=== PATIENT | female | born 1935 | race Caucasian/White ===

== ENCOUNTER 2017-08-23 19:24 | Emergency (ER) | payer MEDICARE, BC ==
--- NOTE | 2017-08-23 19:41 | EDM.PDOC ---
ED HPI GENERAL MEDICAL PROBLEM - General Chief Complaint: General Stated Complaint: Wrist Pain, Lacerations Time Seen by Provider: 08/23/17 19:35 Source of Information: Reports: Patient, EMS, Family (), Old Records ( [facility] EMR. No paper hospital chart available.). Denies: EMS Notes Reviewed (Not available at time of dictation) History Limitations: Reports: No Limitations - History of Present Illness INITIAL COMMENTS - FREE TEXT/NARRATIVE: The patient was brought to the emergency room via ambulance with knit tubing dyer accompaniment with mild immobilization with a pillow and no other treatment in route. Note the patient was walking outside her home at about 18:00 hours this evening when she tripped on some stones landing onto her right face and right wrist. Possible history of right wrist fracture in the past, however the patient is uncertain. She is right-handed. Despite head injury no history of loss of consciousness, change in mental status, diplopia, etc. She has not taken any medications or performed any treatment to this point. The patient denies any chest pain/pressure, heart flutter, dizziness, orthostasis, orthopnea , diaphoresis, paresthesias, recent decreased exercise tolerance, or any other anginal-type symptoms. No recent history of abdominal pain, heartburn, nausea, diarrhea, melena, gross hematochezia, or any food intolerance, including fatty foods, etc.. The patient also denies any recent fever, cough, wheezing, dyspnea , etc.. No history of recent headaches, visual changes, diplopia, change in mental status, or other change in neurological status. She does not know when she received her last tetanus booster. Onset: Today, Sudden Onset Date: 08/23/17 Onset Time: 18:00 Duration: Constant Location: Reports: Face, Upper Extremity, Right. 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 [Unable to Verify Home Med List] 08/23/17 [History] Past Medical History HEENT History: Reports: Impaired Vision, Other (See Below). Denies: Allergic Rhinitis, Cataract, Glaucoma, Hard of Hearing, Macular Degeneration, Retinal Detachment Other HEENT History: Patient wears reading glasses. Cardiovascular History: Reports: Heart Murmur, Other (See Below). Denies: Afib , Aneurysm, Arrhythmia, Blood Clots/VTE/DVT, CAD, High Cholesterol, Hypertension , [place], PVD, Syncope Other Cardiovascular History: Aortic valve stenosis and mitral valve insufficiency by clinical exam. Respiratory History: Reports: None. Denies: Asthma, COPD, Intubation, Difficult , Intubation, Previous, PE, Pneumothorax, Sleep Apnea Gastrointestinal History: Denies: Celiac Disease, Cholelithiasis, Chronic Constipation, Chronic Diarrhea, Fecal Incontinence, GERD, GI Bleed, Inflammatory Bowel Disease, Irritable Bowel Syndrome Genitourinary History: Reports: None. Denies: Acute Renal Failure, Chronic Renal Insuffiency, Renal Calculus, Retention, Urinary, STD, Urinary Incontinence , UTI, Recurrent SANITATION SUPERINTENDENT History: Reports: . Denies: Spontaneous : 2 Para: 2 LMP (Approximate): Other (See Below) Other OB/BYN History: Menopause in her late 40s. Full term without complications during pregnancies or deliveries. Musculoskeletal History: Reports: Arthritis, Fracture, Osteoarthritis, Other ( See Below). Denies: Back Pain, Chronic, Gout, Neck Pain, Chronic, RA, SLE Other Musculoskeletal History: Right wrist fracture in the Neurological History: Reports: None. Denies: Cerebral Aneurysms, Concussion, CVA, Headaches, Chronic, Head Trauma, Migraines, MS, Neuropathy, Peripheral, Parkinson's, Seizure, TIA Psychiatric History: Reports: None. Denies: Abuse, Victim of, ADD, ADHD, Addiction, Anxiety, Depression, Psych Hospitalization(s), PTSD, Suicide Attempt , Suicidal Ideation Endocrine/Metabolic History: Reports: None. Denies: Diabetes, Gestational, Diabetes, Type I, Diabetes, Type II, Diabetes Mellitus, Type 3c, Hypothyroidism , IDDM Hematologic History: Reports: None. Denies: Anemia, Blood Transfusion(s), Iron Deficiency Immunologic History: Reports: None. Denies: AIDS, HIV, SLE Oncologic (Cancer) History: Reports: None. Denies: Basal Cell Carcinoma, Breast , Cervix, Hodgkin's Lymphoma, Leukemia, Lymphoma, Malignant Melanoma, Non- Hodgkin's Lymphoma, Squamous Cell Carcinoma, Uterine Dermatologic History: Reports: None. Denies: Eczema, Psoriasis - Infectious Disease History Infectious Disease History: Reports: Chicken Pox, Measles. Denies: C-Difficile , Meningitis, Mononucleosis, MRSA, Mumps, Pertussis (Whooping Cough), Rheumatic Fever, Rubella, Scarlet Fever, Shingles, TB, VRE - Past Surgical History Head Surgeries/Procedures: Reports: None HEENT Surgical History: Reports: Oral Surgery, Other (See Below). Denies: Adenoidectomy, Cataract Surgery, Eye Surgery, Laser Surgery, LASIK, Myringotomy w Tube(s), Naso-Sinus Surgery, Tonsillectomy Other HEENT Surgeries/Procedures: [place] teeth extraction and multiple teeth extractions Cardiovascular Surgical History: Reports: None. Denies: Varicose Respiratory Surgical History: Reports: None. Denies: Thoracentesis GI Surgical History: Reports: Colonoscopy (Last colonoscopy in about 2015). Denies: Appendectomy, Cholecystectomy, EGD, Hernia, Abdominal, Milla Fundoplication, Polypectomy (Last) Female Surgical History: Reports: None. Denies: Breast Biopsy, D&C, Hysterectomy, Salpingo-Oophorectomy, Tubal Ligation Endocrine Surgical History: Reports: None. Denies: Thyroid Biopsy Neurological Surgical History: Reports: None. Denies: C-Spine, Discectomy, Laminectomy, Lumbar Spine, Sacral Spine, Spinal Fusion, Vertebroplasty Musculoskeletal Surgical History: Reports: Joint Replacement, Knee Replacement, Other (See Below). Denies: Arthroscopic Procedure, Carpal Tunnel, Ganglion Cyst , ORIF, Shoulder Surgery Other Musculoskeletal Surgeries/Procedures:: Bilateral knee hemiarthroplasties in about 2008 Oncologic Surgical History: Reports: None Dermatological Surgical History: Reports: None Social & Family History - Tobacco Use Smoking Status *Q: Never Smoker Tobacco Use Within Last Twelve Months: No Used Tobacco, but Quit: No Smoking Cessation Information Provided To Patient: No Second Hand Smoke Exposure: No Second Hand Smoke Education Provided: No - Caffeine Use Caffeine Use: Reports: Coffee (2 cups per day), Soda (1 soda per week), Tea ( One cup per day). Denies: Energy Drinks - Alcohol Use Alcohol Use History: No Days Per Week of Alcohol Use: 0 Number of Drinks Per Day: 0 Number of Drinks Per Day Comment: No previous DWIs, problems with alcohol abuse , etc. 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 ED EXAM, GENERAL - Physical Exam Exam: See Below Exam Limited By: No Limitations General Appearance: Alert, WD/WN, No Apparent Distress Eye Exam: Bilateral Eye: EOMI, Normal Fundi, Normal Inspection (No nystagmus), PERRL Ears: Normal External Exam, Normal Canal, Normal TMs, Hearing Loss (Borderline mild bilateral presbycusis) Nose: Normal Inspection, Normal Mucosa, No Blood. No: Clear Rhinorrhea Throat/Mouth: Normal Inspection, Normal Lips, Normal Teeth (Multiple missing teeth with no acute caries), Normal Gums, Normal Oropharynx, Normal Voice, No Airway Compromise. No: Dysphagia, Inflammation, Perioral Cyanosis Head: Normocephalic, Facial Swelling, Facial Tenderness, Other (2 cm in length superficial skin tear/abrasion over the right supraorbital region enclosed with a 4 cm mild subcutaneous hematoma. 2 cm abrasion over the right inferior lateral orbital region. No skull deformity, crepitation, etc. with mild to moderate palpation pain over the injury sites). No: Sinus Tenderness Neck: Supple, Non-Tender, Full Range of Motion, Carotid Bruit (Mild bilateral carotid bruits versus transmitted heart sounds). No: Lymphadenopathy (L), Lymphadenopathy (R), Thyromegaly Respiratory/Chest: No Respiratory Distress, Lungs Clear, Normal Breath Sounds, No Accessory Muscle Use, Chest Non-Tender. No: Pleural Rub, Retractions Cardiovascular: Normal Peripheral Pulses, Regular Rate, Rhythm, No Edema, No Gallop, No JVD, No Rub, Systolic Murmur (1-2/6 THELMA over the aortic and mitral valves). No: Gallop/S3, Gallop/S4, Friction Rub Peripheral Pulses: 2+: Radial (L), Radial (R), Dorsalis Pedis (L), Dorsalis Pedis (R) GI/Abdominal: Normal Bowel Sounds, Soft, Non-Tender, No Organomegaly, No Distention, No Abnormal Bruit, No Mass, Pelvis Stable. No: Guarding (Female) Exam: Deferred Rectal (Female) Exam: Deferred Back Exam: Normal Inspection, Full Range of Motion, Other (Mild scoliosis). No : CVA Tenderness (L), CVA Tenderness (R), Muscle Spasm Extremities: No Pedal Edema, Normal Capillary Refill, Limited Range of Motion ( Right Wrist secondary to pain and deformity), Other (No snuffbox tenderness. Moderate wrist deformity with moderate palpation pain in that area). No: Torie' s Sign Neurological: Alert, Oriented, CN II-XII Intact, Normal Gait, Normal Reflexes ( Negative Babinski's), No Motor/Sensory Deficits, Confused (Borderline beginning organic brain syndromestable by 's history) Psychiatric: Normal Affect, Normal Mood Skin Exam: Warm, Dry, Normal Color, No Rash, Wound/Incision (As above), Other ( Additional 2 cm old eschar over the right medial malleolus) Lymphatic: No Adenopathy ED GENERAL MEDICAL PROCEDURES - Joint Reduction Site: Other (Right wrist) Sedation: Hematoma/Fracture Block Local Anesthesia - Lidocaine (Xylocaine): 1% Plain Local Anesthetic Volume: Other (10 mL) Pre-procedure NV status: Normal Post-procedure NV status: Normal Technique: Traction/Counter Traction Number of Attempts: 1 Post-Reduction Imaging: Acceptably Reduced, Fracture Seen Joint Reduction Complications: Yes Joint Reduction Complication Description: Normal radial pulses and excellent capillary refill after reduction. Slight mildly suboptimal postreduction x-rays reduction was clinically adequate, although somewhat unstable. - Splinting Right Upper Extremity Pre-procedure NV status: Normal Post-procedure NV status: Normal Splint Material: Other (3" x 12" padded fiberglass preformed splint cut to fit for short arm splint) Splint Design: Other (Short arm palmar splint secured with 2 inch Nick wrap) Applied & Form Fitted By: Provider Provider Post-Splint Application NV Check: NV Status Normal, Good Position Complications: No Course - Vital Signs Last Recorded V/S: Last Vital Signs Temp 36.9 C 08/23/17 19:25 Pulse 68 08/23/17 19:25 Resp 16 08/23/17 19:25 BP 110/60 08/23/17 20:26 Pulse Ox 97 08/23/17 19:25 Vital Signs - 24 hr 08/23/17 08/23/17 19:25 20:26 Temperature [ 36.9 C Temporal] Pulse, 68 Peripheral [ Pulse Oximetry] Respiratory 16 Rate Blood Pressure 142/88 H 110/60 [Left Upper Arm ] O2 Sat by Pulse 97 Oximetry - Orders/Labs/Meds Orders: Active Orders 24 hr Category Date Time Status Vaccines to be Administered [RC] PER UNIT ROUTINE Care 08/23/17 19:42 Active Wrist 2V Rt [CR] Stat Exams 08/23/17 21:08 Ordered Wrist Comp Min 3V Rt [CR] Stat Exams 08/23/17 19:42 Taken Obtain Past Medical Record [OM.PC] Routine Oth 08/23/17 19:41 Active Labs: None Meds: Medications Discontinued Medications Generic Name Dose Route Start Last Admin Trade Name Freq PRN Reason Stop Dose Admin Diphtheria/Tetanus/Acell Pertussis 0.5 ml 08/23/17 19:42 08/23/17 19:54 Adacel IM 08/23/17 19:43 0.5 ml .ONCE ONE Administration Lidocaine HCl 5 ml 08/23/17 19:42 Xylocaine-Mpf 1% INJECT 08/23/17 19:43 ONETIME ONE Lidocaine HCl 5 ml 08/23/17 19:43 Xylocaine-Mpf 1% INJECT 08/23/17 19:44 ONETIME ONE Lidocaine HCl 5 ml 08/23/17 19:43 Xylocaine-Mpf 1% INJECT 08/23/17 19:44 ONETIME ONE Lidocaine HCl 5 ml 08/23/17 19:43 Xylocaine-Mpf 1% INJECT 08/23/17 19:44 ONETIME ONE Neomycin/Polymyxin/Bacitracin 1 each 08/23/17 19:43 08/23/17 20:15 Triple Antibiotic Oint TOP 08/23/17 19:44 1 each ONETIME ONE Administration Note only 10 mL used of lidocaine for fracture block as above - Radiology Interpretation Free Text/Narrative:: X-rays of the right wrist, 3 views, shows evidence of a moderately angulated comminuted impacted distal radial fracture with additional moderate osteoarthritic changes but no significant dislocation. No evidence of navicular fracture. Moderate osteoarthritic changes noted. X-rays of the right wrist, 2 views-postreduction, shows evidence of mildly suboptimal reduction, however improved angulation. Departure - Departure Time of Disposition: 22:05 Disposition: Home, Self-Care 01 Clinical Impression: Multiple abrasions, Cardiac murmur, Organic brain syndrome (chronic) Osteoarthritis Qualifiers: Osteoarthritis location: multiple joints Osteoarthritis type: primary Qualified Code(s): M15.0 - Primary generalized (osteo)arthritis Wrist fracture, right Qualifiers: Encounter type: initial encounter Fracture type: closed Qualified Code(s): S62.101A - Fracture of unspecified carpal bone, right wrist, initial encounter for closed fracture Contusion Qualifiers: Encounter type: initial encounter Contusion area: head Contusion of head detail : periocular area Laterality: right Qualified Code(s): S00.11XA - Contusion of right eyelid and periocular area, initial encounter - Discharge Information Instructions: Wrist Fracture Treated With Immobilization, [id number], Cast or Splint Care, Adult, Head Injury, Adult, [id number] Referrals: Beck Escobar MD [Primary Care Provider] - Forms: ED Department Discharge Additional Instructions: 1. Contact your regular provider in [facility] by telephone in order to set up a follow-up appointment with an orthopedic surgeon in that area next week for further evaluation of your right wrist fracture. 2. Wear short-arm arm splint at all times with arm elevation and ice packs as needed/discussed 3. Limited use of your right arm, including limited weightbearing, etc. as discussed 4. Tylenol 650 mg by mouth every 4 hours and/or OTC ibuprofen 2-3 tabs by mouth every 6 hours with food as directed./needed. 5. Antibacterial soap wash/soak with subsequent antibacterial dressing such as Neosporin, etc. as directed 2 times per day until the wound or laceration site completely heals. Keep the area clean and dry with activity restrictions as discussed. 6. Immediately after this visit verify that your cellular telephone's voicemail has been activated and is empty. Also verify that your home telephone 's answering machine is operating properly and has space to receive messages. Note that it is sometimes necessary for us to be able to contact you at a later date to discuss your medical care. 7. Bring DVD copy of today's x-rays with you to any follow-up appointments as above. - Problem List & Annotations (1) Wrist fracture, right SNOMED Code(s): 782643820, 504859671 Code(s): S62.101A - FRACTURE OF UNSP CARPAL BONE, RIGHT WRIST, INIT FOR CLOS FX Status: Acute Priority: High Current Visit: Yes Onset Date: 08/23/17 Annotation/Comment:: Various therapeutic options were given to the patient and her . Subsequent telephone consultation at 20:12 and 20:[address] Andres, orthopedic surgeon at [facility] in [place], who did review the x-rays on PACS. She may not have a good operative result secondary to her baseline osteoarthritis and osteoporosis. Per his recommendations we did perform a fracture block and closed reduction with clinically acceptable results as above. Activity restrictions, cast care, etc. discussed. Initially Dr. Andres wanted the patient to follow-up in his office in one week, however the patient's are flying to [place] in 5 days. They have elected to follow-up with her orthopedic surgeon in [place] with appointment to be arranged by the regular provider as per discharge instructions. They were given a DVD of today' s x-rays. Qualifiers: Encounter type: initial encounter Fracture type: closed Qualified Code(s) : S62.101A - Fracture of unspecified carpal bone, right wrist, initial encounter for closed fracture (2) Osteoarthritis SNOMED Code(s): 492231354 Code(s): M19.90 - UNSPECIFIED OSTEOARTHRITIS, UNSPECIFIED SITE Status: Acute Priority: Medium Current Visit: Yes Annotation/Comment:: Moderate osteoarthritis by clinical exam with possible rheumatoid component. Note additional osteoporosis by today's x-rays. Qualifiers: Osteoarthritis location: multiple joints Osteoarthritis type: primary Qualified Code(s): M15.0 - Primary generalized (osteo)arthritis (3) Multiple abrasions SNOMED Code(s): 339727321, 379482583 Code(s): T07.XXXA - UNSPECIFIED MULTIPLE INJURIES, INITIAL ENCOUNTER Status : Acute Priority: High Current Visit: Yes Onset Date: 08/23/17 Annotation/Comment:: Abrasions and superficial skin tear/lacerations nonamenable to surgical repair. DTaP given. Neosporin dressing placed by the nurse after previous disinfection with chlorhexidine. Wound care instructions provided. (4) Contusion SNOMED Code(s): 611939261 Code(s): T14.8XXA - OTHER INJURY OF UNSPECIFIED BODY REGION, INITIAL ENCOUNTER Status: Acute Priority: Medium Current Visit: Yes Onset Date: 08/23/17 Annotation/Comment:: Multiple mild contusions as above including in the head region. No evidence of head concussion or significant injury. Head precautions given. Qualifiers: Encounter type: initial encounter Contusion area: head Contusion of head detail: periocular area Laterality: right Qualified Code(s): S00.11XA - Contusion of right eyelid and periocular area, initial encounter (5) Cardiac murmur SNOMED Code(s): 83707279 Code(s): R01.1 - CARDIAC MURMUR, UNSPECIFIED Status: Chronic Priority: Medium Current Visit: Yes Annotation/Comment:: Mild to moderate aortic valve stenosis and mitral valves and sufficiency by clinical exam. No history of chest pain, recent decreased exercise tolerance, anginal type symptoms etc. No previous cardiac workup. (6) Organic brain syndrome (chronic) SNOMED Code(s): 361168672 Code(s): F09 - UNSP MENTAL DISORDER DUE TO KNOWN PHYSIOLOGICAL CONDITION Status: Chronic Priority: Medium Current Visit: Yes Annotation/Comment:: Beginning mild organic brain syndrome based on exam today with patient often forgetting follow-up instructions, etc. Her did comprehend and understand these instructions, however. Continue to observe closely by her regular providers. - Problem List Review Problem List Initiated/Reviewed/Updated: Yes - My Orders Last 24 Hours: My Active Orders 08/23/17 19:41 Obtain Past Medical Record [OM.PC] Routine 08/23/17 19:42 Vaccines to be Administered [RC] PER UNIT ROUTINE Wrist Comp Min 3V Rt [CR] Stat 08/23/17 21:08 Wrist 2V Rt [CR] Stat - Assessment/Plan Last 24 Hours: My Active Orders 08/23/17 19:41 Obtain Past Medical Record [OM.PC] Routine 08/23/17 19:42 Vaccines to be Administered [RC] PER UNIT ROUTINE Wrist Comp Min 3V Rt [CR] Stat 08/23/17 21:08 Wrist 2V Rt [CR] Stat Assessment:: As above Plan: As above. Extensive precautions were given to the patient and her , who are in agreement with the treatment plan. See Patient Instructions for further treatment and plan.
[2017-08-23] MEDS ORDERED: Diphtheria,Pertussis(Acell),Tetanus Vaccine 0.5 ML SDV IM ONE (19:42)
[2017-08-23] MEDS ORDERED: Bacitracin/Neomycin/Polymyxin B Oint 0.9 GM U/D Packet TOP ONE (19:43)
== END 2017-08-23 21:55 | disposition home or self-care (01) ==
LOC: LL.ED 19:24
DX: S62.101A Fracture of unspecified carpal bone, right wrist, initial encounter for closed fracture (principal); S00.11XA Contusion of right eyelid and periocular area, initial encounter; Z23 Encounter for immunization; R01.1 Cardiac murmur, unspecified; F09 Unspecified mental disorder due to known physiological condition; M15.0 Primary generalized (osteo)arthritis; W20.8XXA Other cause of strike by thrown, projected or falling object, initial encounter
CPT/HCPCS: 25605; 73100-RT; 73110-RT; 90471; 90715; 99284